=== PATIENT | male | born 1965 | race Caucasian/White ===

== ENCOUNTER 2017-05-23 12:17 | Inpatient (IN) | payer MEDICARE ==
[~2017-05-23] VITALS: Ht 182.9 cm; Wt 116.2 kg
[~2017-05-23 12:17] MED LIST: CLEOCIN HCL300 MG PO; COLACE100 MG PO; GLUCOTROL 5 MG T5 MG PO; PERCOCET 10/3251 TA1 PO; ZOLOFT50 MG PO
[2017-05-23 12:55] LABS: BASOPHILS 0.1 % (0-2); EOSINOPHILS 0.9 % (0-7); HEMATOCRIT 43.4 % (42.0-54.0); HEMOGLOBIN 15.4 g/dL (13.5-17.5); IMMATURE GRANULOCYTES 0.5 % (0-5); LYMPHOCYTES 12.8 % (15-50); MCH 29.8 pg (26.0-34.0); MCHC 35.5 g/dL (31.0-37.0); MCV 83.9 fL (80.0-100.0); MEAN PLATELET VOLUME 10.5 fL (7.4-10.4); MONOCYTES 5.5 % (2-11); NEUTROPHILS 80.2 % (40-80); PLATELET COUNT 118 10x3/uL (130-400); RBC 5.17 10x6/uL (4.20-6.10); RDW 14.1 % (11.5-14.5); WBC 10.1 10x3/uL (4.8-10.8)
[2017-05-23 13:20] LABS: ALBUMIN 3.9 g/dL (3.4-5.0); ALKALINE PHOSPHATASE 143 U/L (46-116); ALT (SGPT) 298 U/L (10-68); AMYLASE - SERUM 45 U/L (25-115); BILIRUBIN - TOTAL 1.44 mg/dL (0.2-1.3); CALC OSMOLALITY 278 mosm/kg (275-300); CALCIUM 8.9 mg/dL (8.5-10.1); CHLORIDE - SERUM 98 mmol/L (98-107); CREATININE - SERUM 1.1 mg/dL (0.6-1.3); LIPASE 841 U/L (73-393); POTASSIUM - SERUM 3.7 mmol/L (3.5-5.1); PROTEIN - SERUM 8.1 g/dL (6.4-8.2); SODIUM 134 mmol/L (136-145); UREA NITROGEN 12 mg/dL (7-18); eGFR NON AFRICAN AMERICAN 75 mL/min (90-120)
[2017-05-23 13:21] LABS: GLUCOSE 294 mg/dL (74-106)
[2017-05-23 15:40] LABS: APPEARANCE CLEAR (CLEAR); COLOR YELLOW (YELLOW)
[2017-05-23 15:41] LABS: BILIRUBIN NEGATIVE (NEGATIVE); GLUCOSE 1000 mg/dL (NEGATIVE); KETONE MODERATE mg/dL (NEGATIVE); NITRITE NEGATIVE (NEGATIVE); PROTEIN TRACE mg/dL (NEGATIVE); UROBILINOGEN NORMAL (NORMAL)
[2017-05-23] MEDS ORDERED: GLUCOPHAGE1000 MG PO ×2 (18:14→18:15)
[2017-05-23 18:30] VITALS: BP 146/86; BMI 32.7
[2017-05-23 21:30] VITALS: BP 140/90
[2017-05-24 01:12] VITALS: BP 137/90
[2017-05-24 05:16] LABS: BASOPHILS 0.2 % (0-2); EOSINOPHILS 2.5 % (0-7); HEMATOCRIT 42.9 % (42.0-54.0); HEMOGLOBIN 14.6 g/dL (13.5-17.5); IMMATURE GRANULOCYTES 0.3 % (0-5); LYMPHOCYTES 11.2 % (15-50); MCH 29.6 pg (26.0-34.0); MEAN PLATELET VOLUME 10.3 fL (7.4-10.4); MONOCYTES 7.1 % (2-11); NEUTROPHILS 78.7 % (40-80); PLATELET COUNT 105 10x3/uL (130-400); RBC 4.94 10x6/uL (4.20-6.10); RDW 14.4 % (11.5-14.5); WBC 10.2 10x3/uL (4.8-10.8)
[2017-05-24 05:21] VITALS: BP 132/86
[2017-05-24 05:23] LABS: MCV 86.8 fL (80.0-100.0)
[2017-05-24 05:33] LABS: ALBUMIN 3.5 g/dL (3.4-5.0); ALKALINE PHOSPHATASE 196 U/L (46-116); ALT (SGPT) 257 U/L (10-68); AMYLASE - SERUM 40 U/L (25-115); CALC OSMOLALITY 283 mosm/kg (275-300); CALCIUM 8.9 mg/dL (8.5-10.1); CARBON DIOXIDE 27.6 mmol/L (21.0-32.0); CHLORIDE - SERUM 100 mmol/L (98-107); LIPASE 569 U/L (73-393); POTASSIUM - SERUM 3.6 mmol/L (3.5-5.1); PROTEIN - SERUM 7.8 g/dL (6.4-8.2); SODIUM 139 mmol/L (136-145); UREA NITROGEN 11 mg/dL (7-18); eGFR NON AFRICAN AMERICAN 84 mL/min (90-120)
[2017-05-24 05:39] LABS: GLUCOSE 222 mg/dL (74-106)
[2017-05-24 08:09] VITALS: BP 140/92
[2017-05-24 08:36] LABS: APTT 31.9 SECONDS (22.8-39.4); INR 1.08 (0.85-1.17); PROTIME 13.6 SECONDS (11.6-15.0)
[2017-05-24 08:38] LABS: CHOL - HDL RATIO 6.4 ratio (2.3-4.9); CHOLESTEROL, TOTAL 237 mg/dL (0-200); HDL CHOLESTEROL 37 mg/dL (32-96); TRIGLYCERIDE 434 mg/dL (30-200)
[2017-05-24 10:38] VITALS: Ht 182.9 cm; Wt 116.2 kg
[2017-05-24 11:34] VITALS: BP 142/92
[2017-05-24 15:36] VITALS: BP 126/81
[2017-05-24 20:11] VITALS: BP 146/96
[2017-05-25] VITALS: BP 129/86
[2017-05-25 05:10] LABS: BASOPHILS 0.1 % (0-2); EOSINOPHILS 5.8 % (0-7); HEMATOCRIT 42.2 % (42.0-54.0); HEMOGLOBIN 14.2 g/dL (13.5-17.5); IMMATURE GRANULOCYTES 0.5 % (0-5); LYMPHOCYTES 19.5 % (15-50); MCH 29.6 pg (26.0-34.0); MCHC 33.6 g/dL (31.0-37.0); MCV 88.1 fL (80.0-100.0); MEAN PLATELET VOLUME 10.4 fL (7.4-10.4); MONOCYTES 5.6 % (2-11); NEUTROPHILS 68.5 % (40-80); PLATELET COUNT 118 10x3/uL (130-400); RBC 4.79 10x6/uL (4.20-6.10); RDW 14.4 % (11.5-14.5)
[2017-05-25 05:12] LABS: WBC 7.4 10x3/uL (4.8-10.8)
[2017-05-25 05:22] LABS: ALBUMIN 3.2 g/dL (3.4-5.0); ALKALINE PHOSPHATASE 225 U/L (46-116); CALCIUM 8.2 mg/dL (8.5-10.1); CARBON DIOXIDE 27.4 mmol/L (21.0-32.0); CHLORIDE - SERUM 104 mmol/L (98-107); LIPASE 393 U/L (73-393); POTASSIUM - SERUM 3.2 mmol/L (3.5-5.1); PROTEIN - SERUM 7.9 g/dL (6.4-8.2); SODIUM 142 mmol/L (136-145); UREA NITROGEN 10 mg/dL (7-18); eGFR NON AFRICAN AMERICAN 84 mL/min (90-120)
[2017-05-25 05:33] VITALS: BP 133/92
[2017-05-25 05:35] LABS: ALT (SGPT) 165 U/L (10-68); AMYLASE - SERUM 27 U/L (25-115); CALC OSMOLALITY 284 mosm/kg (275-300); GLUCOSE 155 mg/dL (74-106)
[2017-05-25 08:33] VITALS: BP 119/81
[2017-05-25] MEDS ORDERED: CREON DR 6,0001 EACH PO (12:01)
[2017-05-25 13:08] VITALS: BP 124/85
== END 2017-05-25 13:37 | disposition home or self-care (01) | DRG 440 ==
LOC: D.ER 12:17 → D.M2 16:46 → D.EDHOLD 16:46 → D.M2 17:17
PROVIDERS: Family Medicine; Internal Medicine Gastroenterology
DX: K85.90 Acute pancreatitis without necrosis or infection, unspecified (principal); E78.5 Hyperlipidemia, unspecified; E11.65 Type 2 diabetes mellitus with hyperglycemia; E66.9 Obesity, unspecified; F43.10 Post-traumatic stress disorder, unspecified; K76.0 Fatty (change of) liver, not elsewhere classified; Z68.34 Body mass index [BMI] 34.0-34.9, adult; Z87.891 Personal history of nicotine dependence